=== PATIENT | female | born 1960 | race Caucasian/White ===

== ENCOUNTER → 2020-11-25 | Outpatient (CLI) | payer OTHER | END | disposition home or self-care (01) | LOC: COVID19 14:11 | PROVIDERS: ATTEND Student in an Organized Health Care Education/Training Program | DX: Z11.52 Encounter for screening for COVID-19 (principal); Z20.822 Contact with and (suspected) exposure to COVID-19 ==

== ENCOUNTER → 2021-01-06 | Outpatient (CLI) | payer OTHER | END | disposition home or self-care (01) | LOC: COVID19 10:58 | PROVIDERS: ATTEND Internal Medicine | DX: Z20.822 Contact with and (suspected) exposure to COVID-19 (principal) ==

== ENCOUNTER → 2022-03-26 | Outpatient (CLI) | payer OTHER | LOC: RAD 09:51 | PROVIDERS: ATTEND Internal Medicine Nephrology | DX: M25.561 Pain in right knee (principal) ==

== ENCOUNTER → 2022-05-07 | Outpatient (CLI) | payer OTHER | END | disposition home or self-care (01) | LOC: CARD 14:56 | PROVIDERS: ATTEND Internal Medicine Nephrology | DX: I35.0 Nonrheumatic aortic (valve) stenosis (principal); R01.1 Cardiac murmur, unspecified ==

== ENCOUNTER → 2022-09-21 | Outpatient (CLI) | payer OTHER | END | disposition home or self-care (01) | LOC: MAMMO 09:00 | PROVIDERS: ATTEND Internal Medicine Nephrology | DX: Z12.31 Encounter for screening mammogram for malignant neoplasm of breast (principal) ==

== ENCOUNTER → 2024-05-01 | Outpatient (CLI) | payer OTHER | END | disposition home or self-care (01) | LOC: MAMMO 11:25 | PROVIDERS: ATTEND Internal Medicine Nephrology | DX: Z12.31 Encounter for screening mammogram for malignant neoplasm of breast (principal) ==

== ENCOUNTER 2025-07-02 07:06 | Emergency (ER) | payer MEDICARE ==
[2025-07-02 07:34] LABS: BASO # 0.2 10*3/uL (0.0-0.1); BASO % 1.2 % (0.0-1.0); EOS # 0.2 10*3/uL (0.0-0.4); EOS % 1.9 % (1.0-4.0); MEAN CELL VOLUME 104.9 fl (81.0-99.0); MEAN CORPUSCULAR HGB 32.6 pg (27.0-31.0); MEAN PLATELET VOLUME 10.6 fl (9.6-12.3); MONO # 1.1 10*3/uL (0.1-1.0); MONO % 8.4 % (3.0-9.0); NEUT # 9.7 10*3/uL (2.3-7.9); NEUT % 75.8 % (47.0-73.0); NUCLEATED RED BLOOD CELL 0.1 10*3/uL (0.0-0.0); NUCLEATED RED BLOOD CELL 0.7 % (0.0-0.0); PLATELET COUNT AUTOMATED 95 10*3/uL (130-400); RED CELL DISTRI WIDTH 26.1 % (0-14.5)
[2025-07-02 07:58] LABS: BUN 75 mg/dl (9-23); SGPT/ALT 8 U/L (5-49)
[2025-07-02 08:04] LABS: ETHYL ALCOHOL < 3.0 mg/dl (<3)
[2025-07-02] MEDS ORDERED: ACETAMINOPHEN650 M5 PO (08:07)
[2025-07-02 08:09] LABS: ABG O2 SATURATION 95.2 % (94.0-98.0); ARTERIAL BLOOD GAS PH 7.48 (7.350-7.450); ARTERIAL BLOOD GAS PO2 77.5 mmHg (83.0-108.0)
[2025-07-02] MEDS ORDERED: ALBUTEROL HFA 90 MCG (08:09)
[2025-07-02] MEDS ORDERED: CEFTRIAXONE2 GM IV (08:13)
[2025-07-02] MEDS ORDERED: CETIRIZINE10 MG PO (08:13)
[2025-07-02] MEDS ORDERED: K2-D3 MAX 180-1 EACH PO (08:14)
[2025-07-02] MEDS ORDERED: LEXAPRO20 MG PO (08:14)
[2025-07-02 08:15] LABS: ABG BASE EXCESS -5.8 mmol/L (-2.0-3.0)
[2025-07-02] MEDS ORDERED: FLUTICASONE-SAL12 GM IH (08:15)
[2025-07-02] MEDS ORDERED: NATURE'S BLEND F1 MG PO (08:16)
[2025-07-02] MEDS ORDERED: GABAPENTIN100 M2 PO (08:16)
[2025-07-02] MEDS ORDERED: GLIPIZIDE5 MG PO (08:16)
[2025-07-02] MEDS ORDERED: LACTULOSE10 GM/151 PO (08:17)
[2025-07-02] MEDS ORDERED: MECLIZINE HCL25 M2 PO (08:17)
[2025-07-02] MEDS ORDERED: PANTOPRAZOLE SO40 MG PO (08:18)
[2025-07-02] MEDS ORDERED: ROSUVASTATIN CAL5 MG PO (08:18)
[2025-07-02] MEDS ORDERED: METOPROLOL TART50 M1 PO (08:18)
[2025-07-02] MEDS ORDERED: SODIUM BICARBO650 MG PO (08:20)
[2025-07-02] MEDS ORDERED: FLORASTOR250 MG PO (08:21)
[2025-07-02] MEDS ORDERED: Lactated Ringer's Solution 1,000 ML IV SCH (09:25)
[2025-07-02] MEDS ORDERED: Lactated Ringer's Solution 1,000 ML IV ONE (09:48)
== END 2025-07-02 18:10 | disposition short-term general hospital (02) ==
LOC: ED 07:06
PROVIDERS: Emergency Medicine
DX: R41.0 Disorientation, unspecified (principal); N17.9 Acute kidney failure, unspecified; K21.9 Gastro-esophageal reflux disease without esophagitis; F32.A Depression, unspecified; I10 Essential (primary) hypertension; E11.9 Type 2 diabetes mellitus without complications; E78.5 Hyperlipidemia, unspecified; J45.909 Unspecified asthma, uncomplicated; Z88.0 Allergy status to penicillin; Z88.8 Allergy status to other drugs, medicaments and biological substances